=== PATIENT | female | born 2000 | race Caucasian/White ===

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

== ENCOUNTER 2022-10-03 22:31 | Emergency (ER) | payer BC ==
[~2022-10-03] VITALS: Ht 165.1 cm; Wt 53.5 kg
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
--- NOTE | 2022-10-03 23:15 | NUR ---
WAIVER FORM COMPLETED
[2022-10-03] MEDS ORDERED: IBUPROFEN 400 MG TABLET ONE (23:22)
[2022-10-03] MEDS ORDERED: IBUPROFEN 400 MG TABLET PO ONE (23:30)
--- NOTE | 2022-10-04 02:00 | NUR ---
Patient discharged to home in stable condition. Written and verbal after care instructions given. Patient verbalizes understanding of instruction.
[2022-10-04 03:19] VITALS: BP 133/74
== END 2022-10-04 02:00 | disposition home or self-care (01) ==
LOC: ER 22:35
DX: S83.8X2A Sprain of other specified parts of left knee, initial encounter (principal); S16.1XXA Strain of muscle, fascia and tendon at neck level, initial encounter; S29.012A Strain of muscle and tendon of back wall of thorax, initial encounter; S09.8XXA Other specified injuries of head, initial encounter; F32.A Depression, unspecified; V89.2XXA Person injured in unspecified motor-vehicle accident, traffic, initial encounter; Y93.89 Activity, other specified; Y92.89 Other specified places as the place of occurrence of the external cause; Y99.8 Other external cause status
CPT/HCPCS: 72050-TC; 72074-TC; 73564-TC